=== PATIENT | female | born 1950 | race Two or more races ===

== ENCOUNTER → 2017-09-26 | Outpatient (CLI) | payer OTHER | LOC: CIMAGING 10:55 | PROVIDERS: ATTEND Surgery | DX: Z12.31 Encounter for screening mammogram for malignant neoplasm of breast (principal) | CPT/HCPCS: G0202 ==

== ENCOUNTER → 2017-09-27 | Outpatient (CLI) | payer OTHER | LOC: FIMAGING 12:06 | PROVIDERS: ATTEND Surgery | DX: Z12.39 Encounter for other screening for malignant neoplasm of breast (principal); R92.0 Mammographic microcalcification found on diagnostic imaging of breast | CPT/HCPCS: G0206 ==

== ENCOUNTER → 2018-03-27 | Outpatient (CLI) | payer OTHER | LOC: CIMAGING 13:18 | PROVIDERS: ATTEND Surgery | DX: R92.2 Inconclusive mammogram (principal) ==

== ENCOUNTER → 2018-08-01 | Outpatient (CLI) | payer OTHER | LOC: BRMIMAGING 13:34 | PROVIDERS: ATTEND Internal Medicine | DX: Z13.820 Encounter for screening for osteoporosis (principal); M85.89 Other specified disorders of bone density and structure, multiple sites; M48.56XA Collapsed vertebra, not elsewhere classified, lumbar region, initial encounter for fracture; Z78.0 Asymptomatic menopausal state ==

== ENCOUNTER → 2018-09-20 | Outpatient (CLI) | payer OTHER | LOC: CIMAGING 10:54 | PROVIDERS: ATTEND Surgery | DX: Z12.31 Encounter for screening mammogram for malignant neoplasm of breast (principal) ==

== ENCOUNTER → 2019-03-21 | Outpatient (CLI) | payer OTHER | LOC: BRMIMAGING 09:39 | PROVIDERS: ATTEND Surgery | DX: N64.4 Mastodynia (principal); Z85.3 Personal history of malignant neoplasm of breast | CPT/HCPCS: 76641-PO ==